=== PATIENT | male | born 1990 | race African-American/Black ===

== ENCOUNTER 2024-05-14 06:03 | Emergency (ER) | payer SELFPAY ==
[2024-05-14 06:12] VITALS: BMI 29.0
[2024-05-14] MEDS ORDERED: levETIRAcetam 500 MG/5 ML INJECTION VIAL IVPB ONE (06:39)
[2024-05-14] MEDS: levETIRAcetam 500 MG/5 ML INJECTION VIAL IVPB ONE (06:57)
[2024-05-14 07:04] LABS: BASO % 0.9 % (0-2.0); EOS % 1.1 % (0-4.5); HEMATOCRIT 41.4 % (35.4-49); LYMPH % 23.9 % (8-40); MCH 26.8 pg (25.7-33.7); MCHC 33.9 g/dl (32.0-35.9); MEAN CELL VOLUME 79.1 fl (80-96); MEAN PLT VOLUME 9.3 fl (7.5-11.1); MONO % 6.8 % (3.8-10.2); NEUT % 67.3 % (42.8-82.8); PLATELET COUNT 171 10^3/uL (134-434); RBC 5.24 M/mm3 (4.00-5.60); WHITE BLOOD COUNT 9.2 K/mm3 (4.0-10.0)
[2024-05-14] MEDS: SODIUM CHLORIDE 1,000 ML IV STA (07:19)
[2024-05-14 07:46] LABS: BLOOD UREA NITROGEN 13.3 mg/dL (7-18); CALCIUM 9.3 mg/dL (8.5-10.1); CREATININE 0.7 mg/dL (0.55-1.3)
[2024-05-14 07:55] LABS: BILIRUBIN,TOTAL 0.8 mg/dL (0.2-1); TOT PROT 7.2 g/dl (6.4-8.2)
[2024-05-14] MEDS ORDERED: ACETAMINOPHEN INJECTION 100 ML ONE (07:57)
[2024-05-14] MEDS: ACETAMINOPHEN 1000 MG/100 ML BAG IVPB ONE (08:06)
[2024-05-14 11:40] VITALS: BP 130/70; PULSE 62; RESP 16; TEMP 98.3
== END 2024-05-14 11:41 | disposition home or self-care (01) ==
LOC: JER 06:03
PROC: 3E033NZ Introduction of Analgesics, Hypnotics, Sedatives into Peripheral Vein, Percutaneous Approach (ICD-10-PCS; principal; 2024-05-14)
PROC: 3E033GC Introduction of Other Therapeutic Substance into Peripheral Vein, Percutaneous Approach (ICD-10-PCS; 2024-05-14)
PROC: 3E0337Z Introduction of Electrolytic and Water Balance Substance into Peripheral Vein, Percutaneous Approach (ICD-10-PCS; 2024-05-14)
DX: R00.2 Palpitations (principal); R10.30 Lower abdominal pain, unspecified; R19.7 Diarrhea, unspecified; Z20.822 Contact with and (suspected) exposure to COVID-19
CPT/HCPCS: 0241U-QW; 36415; 74177-TC; 80053; 80177; 82962; 83690; 85025; 93005; 93010; 99285-25; J0131; Q9967